=== PATIENT | female | born 1985 | race Caucasian/White ===

== ENCOUNTER 2020-04-03 15:43 | Emergency (ER) | payer OTHER ==
[~2020-04-03] VITALS: Ht 172.7 cm; Wt 86.2 kg
[2020-04-03] MEDS ORDERED: IBUPROFEN 600600 M1 PO (16:54)
[2020-04-03] MEDS ORDERED: HYDROCODON-ACE1 EAC7 PO (16:54)
[2020-04-03 17:17] VITALS: BP 170/70
== END 2020-04-03 17:18 | disposition home or self-care (01) ==
LOC: M.ERS 15:43
DX: S46.011A Strain of muscle(s) and tendon(s) of the rotator cuff of right shoulder, initial encounter (principal); Z88.6 Allergy status to analgesic agent; Z88.0 Allergy status to penicillin; Z90.710 Acquired absence of both cervix and uterus; X50.0XXA Overexertion from strenuous movement or load, initial encounter; Y93.89 Activity, other specified; Y92.89 Other specified places as the place of occurrence of the external cause; Y99.9 Unspecified external cause status